=== PATIENT | female | born 1985 | race Caucasian/White ===

== ENCOUNTER 2022-08-06 12:43 | Outpatient (CLI) | payer BC, SELFPAY ==
[2022-08-07 09:14] LABS: Albumin* 4.7 g/dL (3.3-5.0); Chloride* 107 mmol/L (96-114)
[2022-08-07 09:15] LABS: Potassium* 4.3 mmol/L (3.6-5.1); Sodium* 140 mmol/L (135-149)
[2022-08-07 09:17] LABS: Alanine Aminotransferase* 16 U/L (4-35); Alkaline Phosphatase* 47 U/L (40-150); Aspartate Amino Transferase* 26 U/L (12-35); Bilirubin Total* 0.7 mg/dL (0.1-1.5); Blood Urea Nitrogen* 11 mg/dL (5-24); Carbon Dioxide* 27 mmol/L (20-32); Creatinine* 0.9 mg/dL (0.5-1.5); Estimated Glomerular Filt Rate 84 ml/min; Total Protein* 7.6 g/dL (6.0-8.3)
[2022-08-07 09:18] LABS: Calcium* 9.4 mg/dL (8.4-10.6); Glucose* 92 mg/dL (60-115); Uric Acid* 3.5 mg/dL (2.2-8.4)
[2022-08-08 15:20] LABS: Rheumatoid Factor <10 IU/mL (0-14)
[2022-08-09 01:37] LABS: Anti-Nuclear Ab(ANA)IgG ELISA None Detected (None Detected)
== END 2022-08-06 12:44 | disposition home or self-care (01) ==
PROVIDERS: Visit Provider Nurse Practitioner Family
DX: M25.572 Pain in left ankle and joints of left foot (principal); L03.90 Cellulitis, unspecified; M25.40 Effusion, unspecified joint
CPT/HCPCS: 80053; 84550; 86039; 86141; 86431; 86617